=== PATIENT | female | born 1955 | race African-American/Black ===

== ENCOUNTER 2023-05-02 19:01 | Emergency (ER) | payer MEDICARE, MEDICAID, SELFPAY ==
[2023-05-02] VITALS (25 sets, daily range): BP systolic 143–188; BP diastolic 86–125; PULSE 77–130; RESP 15–24; TEMP 37.1; O2SAT 94–100; BMI 30.8
--- NOTE | 2023-05-02 19:32 | XR_ITS ---
The [address] [address] Patient Name: REHANA QIU MRN: [id number] date: 1955 Sex: F Assigned Patient Location: ED.MAIN Current Patient Location: ER Accession/Order Number: [id number] Exam Date: 05/02/2023 20:00 Report Date: 05/02/2023 20:19 At the request of: JOSELINE PORTER Procedure: XR chest 1V EXAMINATION: XR chest 1V HISTORY: Chest pain COMPARISON: None. TECHNIQUE: Portable chest FINDINGS: The lung parenchyma is free of consolidation or infiltrate. No pneumothorax or pleural effusion. The cardiac, mediastinal and hilar contours are normal. The visualized osseous structures exhibit no gross abnormality. XR/XR chest 1V IMPRESSION: No acute cardiopulmonary abnormality. Electronically authenticated by: EDU CERNA Date: 05/02/2023 20:19
[2023-05-02 19:38] LABS: Basophils Percent Auto 0.4 % (0.2-2.0); Eosinophils Absolute Auto 0.1 10^3/uL (0.0-0.7); Hemoglobin 10.5 g/dL (12.0-16.0); Immature Granulocytes Abs Auto 0.01 10^3/uL (0.00-0.03); Immature Granulocytes Pct Auto 0.1 % (0.0-0.5); Lymphocytes Absolute Auto 2.3 10^3/uL (1.2-3.8); Lymphocytes Percent Auto 28.8 % (20.5-60.0); Mean Corpuscular HGB Conc 30.9 g/dL (29.9-35.2); Mean Corpuscular Hemoglobin 24.6 pg (26.7-34.0); Mean Corpuscular Volume 79.8 fL (81.0-99.0); Mean Platelet Volume 9.8 fL (9.5-13.5); Monocytes Absolute Auto 0.6 10^3/uL (0.3-0.8); Monocytes Percent Auto 7.4 % (1.7-12.0); Neutrophils Percent Auto 62.3 % (43.0-75.0); Platelet Count 350 10^3/uL (150-450); Red Blood Count 4.26 10^6/uL (4.20-5.40); Red Cell Distribution Width 17.4 % (11.0-15.0)
[2023-05-02] MEDS: DILTIAZEM HCL 25 MG/5 ML VIAL 10 MG IV (19:44)
[2023-05-02] MEDS: MORPHINE SULFATE 2 MG/ML SYRINGE IV (19:44)
[2023-05-02 19:51] LABS: Alanine Aminotransferase 22 U/L (14-59); Albumin Globulin Ratio 0.8; Albumin Level 3.9 g/dL (3.4-5.0); Alkaline Phosphatase 123 U/L (46-116); Aspartate Amino Transferase 21 U/L (15-37); BUN Creatinine Ratio 10.9; Bilirubin Total 0.1 mg/dL (0.2-1.0); Calcium 9.4 mg/dL (8.5-10.1); Carbon Dioxide 23.5 mmol/L (21.0-32.0); Chloride 107 mmol/L (98-107); Estimated GFR (African America >60 (>=60); Estimated GFR (Non-African Ame >60 (>=60); Globulin 4.6 g/dL; Glucose 148 mg/dL (74-106); INR 0.94; Partial Thromboplastin Time 27.3 sec (22.3-36.2); Potassium 3.5 mmol/L (3.5-5.1); Sodium 145 mmol/L (136-145); Total Protein 8.5 g/dL (6.4-8.2)
[2023-05-02 19:58] LABS: Troponin I High Sensitivity 4.8 pg/mL (4.0-51.3)
--- NOTE | 2023-05-02 20:26 | ECG_ITS ---
The [facility] Test Date: 2023-05-02 Pat Name: REHANA QIU Department: Room: - Gender: Female Rehabilitation Attendant: : 1955 Requested By: 0923 Order Number: [id number] Reading MD: BIBI FISHER Measurements Intervals [place] Rate: 126 P: -[id number] WI: -[id number] QRS: 32 QRSD: 100 T: 171 QT: 348 QTc: 423 Interpretive Statements 58715 Atrial fibrillation with rapid ventricular response 3434 Septal myocardial infarction, age undetermined [address] depression, possible subendocardial injury or digitalis effect 32264 Twave abnormality, possible lateral ischemia or digitalis effect 9150 abnormal ECG No previous ECG available for comparison Electronically Signed On 05-03-2023 19:08:16 EDT by BIBI FISHER
--- NOTE | 2023-05-02 20:27 | ECG_ITS ---
The [facility] Test Date: 2023-05-02 Pat Name: REHANA QIU Department: Room: - Gender: Female Community Relations Specialist: : 1955 Requested By: 0923 Order Number: [id number] Reading MD: BIBI FISHER Measurements Intervals [place] Rate: 82 P: 67 UT: 194 QRS: 35 QRSD: 92 T: 150 QT: 288 QTc: 327 Interpretive Statements 1100 Sinus rhythm 3434 Septal myocardial infarction, age undetermined 8305 Short QTc interval 9150 abnormal ECG Compared to ECG 05/02/2023 19:21:23 Atrial fibrillation no longer present ST (T wave) deviation no longer present Possible ischemia no longer present Myocardial infarct finding still present Electronically Signed On 05-03-2023 19:08:35 EDT by BIBI FISHER
[2023-05-02] MEDS: HYDRALAZINE HCL 20 MG/ML VIAL 5 MG IVP (21:06)
--- NOTE | 2023-05-02 21:21 | ED.GENADUL1 ---
HPI - General Adult General Chief complaint: Dizziness Stated complaint: CHEST PAIN Time Seen by Provider: 05/02/23 19:19 Source: patient Mode of arrival: walk-in Limitations: no limitations History of Present Illness HPI narrative: 68-year-old female with history of atrial fibrillation Presents here to the emergency room With a chief complaint of dizziness and heart palpitations. She states she feels her heart has been racing all day. She states that she had some chest tightness and could not get relief of symptoms and palpitations so she had her son bring her to the emergency room. Patient was brought back via wheelchair. She does have a history of atrial fibrillation. She's not had any recent hospitalizations. She sees cardiology here at the hospital. She is alert and oriented. Denies pain at this time. States she just feels mildly short of breath. She states she takes a blood thinner and is also on flecainide for her atrial fibrillation. Patient is tachycardic upon arrival. initial ekg shows a rapid atrial fibrillation Related Data Home Medications Medication Instructions Recorded Confirmed amlodipine 5 mg tablet mg 05/02/23 apixaban 5 mg tablet (Eliquis) mg 05/02/23 flecainide 100 mg tablet mg 05/02/23 fluticasone propionate 50 intranasal 05/02/23 mcg/actuation nasal spray,suspension gabapentin 800 mg tablet mg 05/02/23 metformin 500 mg tablet mg 05/02/23 methimazole 10 mg tablet mg 05/02/23 metoprolol tartrate 25 mg tablet mg 05/02/23 montelukast 10 mg tablet mg 05/02/23 pantoprazole 40 mg tablet,delayed mg PO 05/02/23 release semaglutide 1 mg/dose (4 mg/3 mL) mg subcut 05/02/23 subcutaneous pen injector (Ozempic) Allergies Allergy/AdvReac Type Severity Reaction Status Date / Time No Known Drug Allergies Allergy Verified 05/02/23 19:49 Review of Systems ROS Narrative All Systems are negative except as noted/marked.All systems reviewed and otherwise negative PFSH PFS Social History Smoking status: Never smoker Exam Narrative Exam Narrative: Nurses note and vital signs reviewed and patient is not hypoxic. General: The patient appears well and in no apparent distress. Patient is resting comfortably on cart. Skin: Warm, dry, no pallor noted. There is no rash noted. Head: Normocephalic, atraumatic Eye: Normal conjunctiva, no drainage, EOMI. PERRL Ears, Nose, Mouth, and Throat: oral mucosa is moist. Nares patent. Mouth without vesicles. Ear canals patent. Tm's without Erythema Cardiovascular: irregular rate rhythm Respiratory: Patient is in no distress, no accessory muscle use, lungs are clear to auscultation, no wheezing, rales or rhonchi Back: non-tender, no CVA tenderness bilaterally to percussion. GI: Normal bowel sounds, no tenderness to palpation, no masses appreciated. No rebound, guarding, or rigidity noted. Musculoskeletal: The patient has no evidence of calf tenderness, no pitting edema, symmetrical pulses noted bilaterally Neurological: A&O x4, normal speech Psychiatric: Cooperative Constitutional Vital Signs, click to edit/add: Last Vital Signs Temp 98.7 F 05/02/23 19:09 Pulse 82 05/02/23 21:50 Resp 19 05/02/23 21:50 BP 148/86 H 05/02/23 21:45 Pulse Ox 100 05/02/23 21:50 Course Vital Signs Vital signs: Vital Signs Temperature 98.7 F 05/02/23 19:09 Pulse Rate 125 H 05/02/23 19:09 Respiratory Rate 20 05/02/23 19:09 Blood Pressure 143/104 H 05/02/23 19:09 Pulse Oximetry 96 05/02/23 19:09 Temperature 98.7 F 05/02/23 19:09 Pulse Rate 82 05/02/23 21:50 Respiratory Rate 19 05/02/23 21:50 Blood Pressure 148/86 H 05/02/23 21:45 Pulse Oximetry 100 05/02/23 21:50 Medical Decision Making Differential Diagnosis Differential Diagnosis: Supraventricular tachycardia, atrial fibrillation, chest pain Medical Records Medical records reviewed: Yes I reviewed the patient's medical records Medical records narrative: 68-year-old female with history of atrial fibrillation Presents here to the emergency room With a chief complaint of dizziness and heart palpitations. She states she feels her heart has been racing all day. She states that she had some chest tightness and could not get relief of symptoms and palpitations so she had her son bring her to the emergency room. Patient was brought back via wheelchair. She does have a history of atrial fibrillation. She's not had any recent hospitalizations. She sees cardiology here at the hospital. She is alert and oriented. Denies pain at this time. States she just feels mildly short of breath. She states she takes a blood thinner and is also on flecainide for her atrial fibrillation. Patient is tachycardic upon arrival. initial ekg shows a rapid atrial fibrillation Patient presented here with a chief complaint of rapid atrial fibrillation. She was given IV Cardizem 10 mg. She did convert from a rate of hematocrit than one twenty-two 80 bpm normal sinus rhythm. Patient mildly elevated blood pressure upon arrival as well. His vital signs are stable. 2nd troponin is currently pending. Transitional care to supervising physician. Patient does feel better feels comfortable going home. patient heart score of 3, denies pain at this time or whie in er Lab Data Lab results reviewed: Yes I reviewed the patient's lab results Labs: Lab Results 05/02/23 05/02/23 Range/Units 19:20 21:10 WBC 8.0 (4.0-11.0) 10^3/uL RBC 4.26 (4.20-5.40) 10^6/uL Hgb 10.5 L (12.0-16.0) g/dL Hct 34.0 L (36.0-48.0) % MCV 79.8 L (81.0-99.0) fL MCH 24.6 L (26.7-34.0) pg MCHC 30.9 (29.9-35.2) g/dL RDW 17.4 H (11.0-15.0) % Plt Count 350 (150-450) 10^3/uL MPV 9.8 (9.5-13.5) fL Neut % (Auto) 62.3 (43.0-75.0) % Lymph % (Auto) 28.8 (20.5-60.0) % Faulkner % (Auto) 7.4 (1.7-12.0) % Eos % (Auto) 1.0 (0.9-7.0) % Baso % (Auto) 0.4 (0.2-2.0) % Neut # (Auto) 5.0 (1.4-6.5) 10^3/uL Lymph # (Auto) 2.3 (1.2-3.8) 10^3/uL Faulkner # (Auto) 0.6 (0.3-0.8) 10^3/uL Eos # (Auto) 0.1 (0.0-0.7) 10^3/uL Baso # (Auto) 0.0 (0.0-0.1) 10^3/uL Abs Immat Gran (auto) 0.01 (0.00-0.03) 10^3/uL Imm/Tot Granulo (auto) 0.1 (0.0-0.5) % PT 10.0 (9.0-11.6) sec INR 0.94 APTT 27.3 (22.3-36.2) sec Sodium 145 (136-145) mmol/L Potassium 3.5 (3.5-5.1) mmol/L Chloride 107 (98-107) mmol/L Carbon Dioxide 23.5 (21.0-32.0) mmol/L Anion Gap 18.0 BUN 10.0 (7.0-18.0) mg/dL Creatinine 0.92 (0.55-1.02) mg/dL Est GFR ( Amer) >60 (>=60) Est GFR (Non-Af Amer) >60 (>=60) BUN/Creatinine Ratio 10.9 Glucose 148 H (74-106) mg/dL Calcium 9.4 (8.5-10.1) mg/dL Total Bilirubin 0.1 L (0.2-1.0) mg/dL AST 21 (15-37) U/L ALT 22 (14-59) U/L Alkaline Phosphatase 123 H (46-116) U/L Troponin I High Sens 4.8 6.7 (4.0-51.3) pg/mL NT-Pro-B Natriuret Pep 41.0 (<=900.0) pg/mL Total Protein 8.5 H (6.4-8.2) g/dL Albumin 3.9 (3.4-5.0) g/dL Globulin 4.6 g/dL Albumin/Globulin Ratio 0.8 Imaging Data Chest x-ray: Radiologist's impression: Patient Name: REHANA QIU MRN: [facility]:[id number] date: 1955 Sex: F Assigned Patient Location: ED.MAIN Current Patient Location: ER Accession/Order Number: [id number] Exam Date: 05/02/2023 20:00 Report Date: 05/02/2023 20:19 At the request of: JOSELINE PORTER Procedure: XR chest 1V EXAMINATION: XR chest 1V HISTORY: Chest pain COMPARISON: None. TECHNIQUE: Portable chest FINDINGS: The lung parenchyma is free of consolidation or infiltrate. No pneumothorax or pleural effusion. The cardiac, mediastinal and hilar contours are normal. The visualized osseous structures exhibit no gross abnormality. IMPRESSION: No acute cardiopulmonary abnormality. Electronically authenticated by: EDU CERNA Date: 05/02/2023 20:19 ECG Data Attestation: I personally reviewed and interpreted this ECG as follows: Interpretation: 1920 Atrial fibrillation with rapid ventricular response with a rate of 127 bpm QRS duration 100 ms 2026 EKG shows a converted to normal sinus rhythm with a rate of 82 bpm, MA interval 194 ms QRS duration [address] elevation or depression Discharge Plan Discharge Chief Complaint: Dizziness Clinical Impression: Atrial fibrillation with RVR Patient Disposition: Home, Self-Care Time of Disposition Decision: 21:51 Condition: Good Prescriptions / Home Meds: No Action metformin 500 mg tablet amlodipine 5 mg tablet gabapentin 800 mg tablet flecainide 100 mg tablet montelukast 10 mg tablet methimazole 10 mg tablet metoprolol tartrate 25 mg tablet Eliquis 5 mg tablet pantoprazole 40 mg tablet,delayed release (DR/EC) PO fluticasone propionate 50 mcg/actuation spray,suspension INTRANASAL Ozempic 1 mg/dose (4 mg/3 mL) pen injector SUBCUT Instructions: A-fib (Atrial Fibrillation) (ED) Stand Alone Forms: Portal Instructions Referrals: [facility], [place] [Primary Care Provider] - 1 week
[2023-05-02 21:42] LABS: Troponin I High Sensitivity 6.7 pg/mL (4.0-51.3)
== END 2023-05-02 22:07 | disposition home or self-care (01) ==
PROVIDERS: Physician Assistant; Emergency Provider Emergency Medicine
DX: I48.91 Unspecified atrial fibrillation (principal); R06.02 Shortness of breath; Z79.01 Long term (current) use of anticoagulants; Z79.899 Other long term (current) drug therapy; Z79.84 Long term (current) use of oral hypoglycemic drugs
CPT/HCPCS: 36415; 71045; 80053; 83880; 84484; 85025; 85610; 85730; 93005; 96374; 96375; 99285

== ENCOUNTER 2025-04-06 18:54 | Outpatient (REF) | payer MEDICARE, MEDICAID, SELFPAY ==
[2025-04-11 13:08] LABS: Age Gdln ACOG Testing Note (.); Pap IG (Image Guided) Note (.)
== END 2025-04-06 18:55 | disposition home or self-care (01) ==
LOC: LAB 18:54
PROVIDERS: Visit Provider Physician Assistant
DX: Z01.419 Encounter for gynecological examination (general) (routine) without abnormal findings (principal)
CPT/HCPCS: 88175